=== PATIENT | female | born 1980 | race Caucasian/White ===

== ENCOUNTER 2020-12-20 09:18 | Emergency (ER) | payer OTHER ==
[2020-12-20] MEDS ORDERED: Fentanyl 100 MCG/2 ML VIAL ONE ×3 (09:25→09:49)
[2020-12-20] MEDS ORDERED: Boostrix 0.5 ML (Tdap) VIAL ONE (09:26)
[2020-12-20 09:50] LABS: INR-International Normal Ratio 0.9; PTT 25.5 sec (22.9-36.1); Prothrombin Time 12.4 sec (12.0-14.7)
[2020-12-20 09:51] LABS: Hemoglobin 17.7 g/dL (12.0-16.0); Mean Corpuscular HGB CONC 34.4 g/dL (32.0-36.0); Mean Corpuscular Hemoglobin 33.7 pg (27.0-31.0); Mean Corpuscular Volume 97.9 fL (78.0-98.0); Mean Platelet Volume 8.8 fL (7.4-10.4); Platelet Count 524 thou/uL (130-400); RBC Distribution Width 13.1 % (11.5-14.5); Red Blood Cell (RBC) Count 5.25 mill/uL (4.20-5.40); White Blood Cell (WBC) Count 12.4 thou/uL (4.8-10.8)
[2020-12-20] MEDS ORDERED: Ketamine 500 MG in Sodium Chloride 0.9% 490 ML IVPB PRN (09:54)
[2020-12-20 10:10] LABS: Band 2 % (5-11); Eosinophils 2 % (0-10); Lymphocytes 44 % (21-51); MDiff Complete? YES; Monocytes 4 % (0-10); Neutrophil 44 % (42-75); RBC Morphology Normal; Reactive Lymphocytes 4 % (0-10)
[2020-12-20 10:21] LABS: Analyzer IN Cardio ER; Base Excess (BEa) -3.8 mEq/L (-2.0 to +3.0); CO2 Tension 47.5 mmHg (35.0-45.0); Calcium, Ionized (arterial) 1.12 mmol/L (1.12-1.30); Carboxyhemoglobin (COHb) 17.4 gm% (0.0-3.0); Hemoglobin (Hb) 16.3 g/dL (12.0-16.0); Potassium - ABG Lab 3.62 mmol/L (3.70-5.30)
[2020-12-20 10:33] LABS: O2 Tension (PaO2), arterial 57.2 mmHg (80.0-100.0); Puncture Site LRA
[2020-12-20 10:34] LABS: ALV-art Gradient 33.155 mmHg (0-20)
[2020-12-20] MEDS ORDERED: Ketamine 50 MG/ML (10ML VIAL) ONE (10:34)
== END 2020-12-20 10:59 | disposition short-term general hospital (02) ==
LOC: ERS 09:18
DX: T24.312A Burn of third degree of left thigh, initial encounter (principal); T24.311A Burn of third degree of right thigh, initial encounter; T21.31XA Burn of third degree of chest wall, initial encounter; T21.37XA Burn of third degree of female genital region, initial encounter; T22.30XA Burn of third degree of shoulder and upper limb, except wrist and hand, unspecified site, initial encounter; T31.44 Burns involving 40-49% of body surface with 40-49% third degree burns; X08.8XXA Exposure to other specified smoke, fire and flames, initial encounter; F17.210 Nicotine dependence, cigarettes, uncomplicated
CPT/HCPCS: 16030; 36600; 51702; 71045; 82805; 83605; 85025; 85610; 85730; 90471; 90715; 93005; 94760; 96374; 96375; G0390; J0690; J3010; J7030